=== PATIENT | female | born 1980 | race Caucasian/White ===

== ENCOUNTER → 2016-11-07 | Outpatient (CLI) | payer MEDICAID ==
[~2016-11-07] MED LIST: FERR325C PO; GABA100C PO; IBUP-1222 PO; LABE100T3 PO; MULT-230 PO; MULT1TAB9 PO; NIFE60TA2 PO; OXYC-223 PO; OXYC-302 PO
== END | disposition home or self-care (01) ==
LOC: STAR 11:18
PROVIDERS: ATTEND Obstetrics & Gynecology
DX: Z30.2 Encounter for sterilization (principal)
CPT/HCPCS: 36415; 81003; 84702; 85025